=== PATIENT | female | born 1960 | race Hispanic/Latino ===

== ENCOUNTER 2018-03-31 17:25 | Emergency (ER) | payer OTHER, SELFPAY ==
[2018-03-31] MEDS ORDERED: Acetaminophen/Codeine 30-300mg Tablet ONE (18:22)
== END 2018-03-31 18:55 | disposition home or self-care (01) ==
LOC: ERS 17:25
DX: N76.2 Acute vulvitis (principal); E11.9 Type 2 diabetes mellitus without complications; E78.5 Hyperlipidemia, unspecified; I10 Essential (primary) hypertension; F41.9 Anxiety disorder, unspecified; F32.9 Major depressive disorder, single episode, unspecified; Z79.4 Long term (current) use of insulin
CPT/HCPCS: 99283

== ENCOUNTER 2021-01-14 10:10 | Emergency (ER) | payer OTHER, SELFPAY ==
[2021-01-14 18:03] LABS: SARS-CoV-2 PCR by NAA Not Detected (NotDetected)
== END 2021-01-14 12:12 | disposition home or self-care (01) ==
LOC: ERS 10:10
DX: R09.81 Nasal congestion (principal); J02.9 Acute pharyngitis, unspecified; R51.9 Headache, unspecified; Z20.822 Contact with and (suspected) exposure to COVID-19; E11.9 Type 2 diabetes mellitus without complications; E78.5 Hyperlipidemia, unspecified; E78.00 Pure hypercholesterolemia, unspecified; I10 Essential (primary) hypertension; Z79.4 Long term (current) use of insulin; Z79.899 Other long term (current) drug therapy
CPT/HCPCS: 87635; 99284; U0003; U0005